=== PATIENT | male | born 1945 | race Caucasian/White ===

== ENCOUNTER 2024-01-10 10:20 | Inpatient (IN) | payer MEDICARE, MEDICAID ==
[~2024-01-10] VITALS: Ht 193 cm; Wt 65.8 kg
[2024-01-10] VITALS (19 sets, daily range): BP systolic 85–165; BP diastolic 54–137; PULSE 99–113; RESP 12–23; TEMP 36.16956–36.1956; O2SAT 95–100
[2024-01-10] MEDS: SODIUM CHLORIDE 0.9% 1,000 ML IV ONE ×2 (11:11→13:37)
[2024-01-10] MEDS: PIPERACILLIN/TAZO 3.375G/50ML 50 ML IV ONE (11:11)
[2024-01-10] MEDS: VANCOMYCIN 1G PREMIX 200 ML IV ONE (11:34)
[2024-01-10] MEDS: DILTIAZEM HCL 5MG/ML 5ML VIAL IV ONE (11:36)
[2024-01-10 11:42] LABS: HEMATOCRIT. 36.4 % (42.0-52.0); HEMOGLOBIN. 11.7 g/dL (14.0-18.0); INR 1.7; MEAN CORPUSCULAR HEMOGLOBIN 31.6 pg (28.0-32.0); MEAN CORPUSCULAR VOLUME 98.6 fL (80.0-94.0); MEAN PLATELET VOLUME 11.8 fl (7.4-10.4); PLATELET 356 x1000/uL (130-400); PROTHROMBIN TIME 18.6 sec (9.6-11.0); RED CELL DISTRIBUTION WIDTH 14.9 % (11.6-14.6); WHITE BLOOD COUNT 21.5 x1000/uL (4.5-11.0)
[2024-01-10 11:46] LABS: CHLORIDE 100 mEq/L (98-107); DIFFERENTIAL COMMENT 1; SODIUM 136 mEq/L (136-145)
[2024-01-10 11:47] LABS: CALCIUM 8.3 mg/dL (8.7-10.4); CARBON DIOXIDE 19 mEq/L (21-32)
[2024-01-10 11:52] LABS: GLUCOSE 143 mg/dL (70-105)
[2024-01-10 11:54] LABS: CREATINE KINASE 625 IU/L (46-171)
[2024-01-10 11:59] LABS: CREATININE 4.4 mg/dL (0.6-1.3); ETHANOL BLOOD < 10 mg/dL (<10)
[2024-01-10] MEDS: DILTIAZEM HCL 60MG TABLET PO ONE (12:00)
[2024-01-10 12:01] LABS: TROPONIN I HIGH SENSITIVITY 67 ng/L (3.0-53); UREA NITROGEN BLOOD 104 mg/dL (9-23)
[2024-01-10 12:42] LABS: PLATELET ESTIMATE NORMAL
[2024-01-10] MEDS: NOREPINEPHRINE 8MG/250ML PMX 250 ML IV ONE (13:30)
[2024-01-10 14:14] LABS: TROPONIN I HIGH SENSITIVITY 66 ng/L (3.0-53)
[2024-01-10] MEDS ORDERED: ACETAMINOPHEN 325MG TABLET PO PRN (15:30)
[2024-01-10] MEDS ORDERED: DOCUSATE SODIUM 100MG CAPSULE PO PRN (15:30)
[2024-01-10] MEDS ORDERED: ONDANSETRON HCL 4MG/2ML INJ IV PRN (15:30)
[2024-01-10] MEDS ORDERED: CLONIDINE 0.1MG TABLET PO PRN (15:30)
[2024-01-10 15:33] LABS: CLARITY URINE TURBID (CLEAR); COLOR URINE YELLOW (YELLOW); GLUCOSE URINE NEGATIVE (NEGATIVE); KETONES URINE NEGATIVE (NEGATIVE); LEUKOCYTE ESTERASE URINE 3+ (NEGATIVE); NITRITE URINE NEGATIVE (NEGATIVE); OCCULT BLOOD URINE 3+ (NEGATIVE); PROTEIN URINE 3+ (NEGATIVE); SPECIFIC GRAVITY URINE 1.015 (1.005-1.030); UROBILINOGEN URINE 0.2 E.U./dL (0.2-1.0)
[2024-01-10 15:46] LABS: *AMPHETAMINES SCREEN URINE NEGATIVE (NEGATIVE); *BARBITURATES SCREEN URINE NEGATIVE (NEGATIVE); *BENZODIAZEPINES SCREEN URINE NEGATIVE (NEGATIVE)
[2024-01-10 15:47] LABS: *COCAINE SCREEN URINE NEGATIVE (NEGATIVE); CANNABINOID URINE SCREEN NEGATIVE (NEGATIVE); ECSTASY MDMA SCREEN URINE NEGATIVE (NEGATIVE); METHADONE URINE SCREEN NEGATIVE (NEGATIVE); OPIATES URINE SCREEN NEGATIVE (NEGATIVE); PHENCYCLIDINE URINE SCREEN NEGATIVE (NEGATIVE)
[2024-01-10 16:07] LABS: BACTERIA URINE 4+; RBC URINE 25-50 /hpf (0-2); SQUAMOUS EPITHELIAL CELL URINE NONE SEEN /lpf (RARE/1+); WBC URINE TNTC /hpf (0-2); YEAST URINE NONE SEEN
[2024-01-10] MEDS ORDERED: DEXTROSE 50% WATER 50ML SYRINGE IV PRN (16:15)
[2024-01-10] MEDS: SODIUM CHLORIDE 0.9% 1,000 ML IV SCH (17:45)
[2024-01-10] MEDS: PANTOPRAZOLE SODIUM 40 MG/VIAL IV SCH (17:46)
[2024-01-10] MEDS: BLOOD SUGAR DIAGNOSTIC STRIP TEST SCH (17:58)
[2024-01-10] MEDS: INSULIN LISPRO 100 UNITS/ML SUBCUT SCH (18:20)
[2024-01-10 19:18] LABS: PHOSPHORUS 7.4 mg/dL (2.5-4.9)
[2024-01-10 19:19] LABS: TROPONIN I HIGH SENSITIVITY 56 ng/L (3.0-53)
[2024-01-10] MEDS: PIPERACILLIN/TAZO 3.375G/50ML 50 ML IV SCH (21:07)
[2024-01-10] MEDS: ENOXAPARIN 60MG/0.6ML SYR SUBCUT SCH (21:08)
[2024-01-11] VITALS (91 sets, daily range): BP systolic 72–126; BP diastolic 46–90; PULSE 95–144; RESP 11–28; TEMP 36.33624–37.16964; O2SAT 89–99
[2024-01-11 06:25] LABS: CREATINE KINASE 897 IU/L (46-171)
[2024-01-11 08:31] LABS: POTASSIUM 3.1 mEq/L (3.5-5.1)
[2024-01-11 08:32] LABS: CALCIUM 7.5 mg/dL (8.7-10.4)
[2024-01-11 08:37] LABS: CREATININE 3.4 mg/dL (0.6-1.3)
[2024-01-11] MEDS ORDERED: LIDOCAINE HCL 1% 10 MG/ML 10ML VIAL ONE (08:39)
[2024-01-11] MEDS ORDERED: ENOXAPARIN 30MG/0.3ML SYR SUBCUT SCH (09:00)
[2024-01-11 09:02] LABS: BASOPHILS % 0.3 % (0.0-2.0); EOSINOPHILS % 0.5 % (0.0-5.0); HEMATOCRIT. 36.7 % (42.0-52.0); HEMOGLOBIN. 11.8 g/dL (14.0-18.0); LYMPHOCYTES % 9.8 % (20.0-50.0); MEAN CORPUSCULAR HEMOGLOBIN 31.9 pg (28.0-32.0); MEAN CORPUSCULAR HGB CONC 32.2 g/dL (31.0-37.0); MEAN CORPUSCULAR VOLUME 99.2 fL (80.0-94.0); MEAN PLATELET VOLUME 11.2 fl (7.4-10.4); MONOCYTES % 5.3 % (2.0-8.0); NEUTROPHILS % 84.1 % (40.0-76.0); PLATELET 404 x1000/uL (130-400); RED CELL DISTRIBUTION WIDTH 15.2 % (11.6-14.6); WHITE BLOOD COUNT 21.9 x1000/uL (4.5-11.0)
[2024-01-11] MEDS ORDERED: DOCUSATE SODIUM 100MG CAPSULE PO SCH ×2 (09:45)
[2024-01-11] MEDS: DOCUSATE SODIUM 250MG CAPSULE PO SCH (10:41)
[2024-01-11] MEDS ORDERED: AMIODARONE HCL 150 MG in DEXT 5% WATER 97 ML IV NR (12:15)
[2024-01-11] MEDS: VANCOMYCIN 1.25GM PMX (XELLIA) 250 ML IV NR (12:50)
[2024-01-11] MEDS: INSULIN LISPRO 100 UNITS/ML SUBCUT SCH (12:50)
[2024-01-11] MEDS: AMIODARONE 150MG/100ML 100 ML IV NR (12:50)
[2024-01-11] MEDS: AMIODARONE HCL 900 MG in DEXT 5% WATER 482 ML IV PRN (13:02)
[2024-01-11] MEDS: PHENYLEPHRINE 50MG/250ML PMX 250 ML IV PRN (17:27)
[2024-01-11] MEDS: POTASSIUM CHLORIDE 20MEQ TABLET SR PO NR (17:28)
[2024-01-11 18:04] LABS: CREATININE URINE RANDOM 32.8 mg/dL
[2024-01-11] MEDS ORDERED: VANCOMYCIN 500MG PREMIX 100 ML IV SCH (23:30)
[2024-01-12] VITALS (82 sets, daily range): BP systolic 87–137; BP diastolic 39–98; PULSE 52–76; RESP 11–27; TEMP 36.3918–36.72516; O2SAT 86–100
[2024-01-12 06:02] LABS: CALCIUM 7.5 mg/dL (8.7-10.4); CARBON DIOXIDE 23 mEq/L (21-32); CHLORIDE 106 mEq/L (98-107); POTASSIUM 3.4 mEq/L (3.5-5.1); SODIUM 137 mEq/L (136-145)
[2024-01-12 06:07] LABS: CREATININE 2.6 mg/dL (0.6-1.3); GLUCOSE 114 mg/dL (70-105); UREA NITROGEN BLOOD 74 mg/dL (9-23)
[2024-01-12 06:10] LABS: PHOSPHORUS 3.9 mg/dL (2.5-4.9)
[2024-01-12 08:21] LABS: BASOPHILS % 0.5 % (0.0-2.0); EOSINOPHILS % 0.9 % (0.0-5.0); HEMATOCRIT. 34.3 % (42.0-52.0); HEMOGLOBIN. 11.2 g/dL (14.0-18.0); LYMPHOCYTES % 11.3 % (20.0-50.0); MEAN CORPUSCULAR HEMOGLOBIN 32.1 pg (28.0-32.0); MEAN CORPUSCULAR HGB CONC 32.8 g/dL (31.0-37.0); MEAN CORPUSCULAR VOLUME 97.9 fL (80.0-94.0); MONOCYTES % 4.9 % (2.0-8.0); NEUTROPHILS % 82.4 % (40.0-76.0); PLATELET 410 x1000/uL (130-400); RED CELL DISTRIBUTION WIDTH 15.1 % (11.6-14.6); WHITE BLOOD COUNT 18.6 x1000/uL (4.5-11.0)
[2024-01-12] MEDS: POTASSIUM CHLORIDE 20MEQ TABLET SR PO NR (09:38)
[2024-01-12] MEDS: POTASSIUM CHLORIDE 20MEQ/PACKET PO NR (09:45)
[2024-01-12] MEDS: VANCOMYCIN 1.25GM PMX (XELLIA) 250 ML IV NR (12:55)
[2024-01-12] MEDS: POTASSIUM CHLORIDE 20MEQ/PACKET PO SCH (15:22)
[2024-01-12] MEDS: PIPERACILLIN/TAZO 3.375G/50ML 50 ML IV SCH (15:22)
[2024-01-12] MEDS: MIDODRINE HCL 5MG TABLET PO SCH (17:02)
[2024-01-13] VITALS (8 sets, daily range): BP systolic 107–133; BP diastolic 62–83; PULSE 57–73; RESP 16–22; TEMP 36.3918–36.83628; O2SAT 93–99
[2024-01-13 06:44] LABS: CALCIUM 7.8 mg/dL (8.7-10.4); CARBON DIOXIDE 23 mEq/L (21-32); CHLORIDE 109 mEq/L (98-107); POTASSIUM 3.7 mEq/L (3.5-5.1); SODIUM 141 mEq/L (136-145)
[2024-01-13 06:49] LABS: GLUCOSE 90 mg/dL (70-105)
[2024-01-13 06:50] LABS: CREATININE 1.7 mg/dL (0.6-1.3); UREA NITROGEN BLOOD 42 mg/dL (9-23)
[2024-01-13 06:52] LABS: PHOSPHORUS 2.7 mg/dL (2.5-4.9)
[2024-01-13 07:13] LABS: BASOPHILS % 0.5 % (0.0-2.0); DIFFERENTIAL COMMENT 0; EOSINOPHILS % 1.2 % (0.0-5.0); HEMATOCRIT. 36.5 % (42.0-52.0); HEMOGLOBIN. 11.6 g/dL (14.0-18.0); LYMPHOCYTES % 19.1 % (20.0-50.0); MEAN CORPUSCULAR VOLUME 100.1 fL (80.0-94.0); MEAN PLATELET VOLUME 10.4 fl (7.4-10.4); MONOCYTES % 5.4 % (2.0-8.0); NEUTROPHILS % 73.8 % (40.0-76.0); PLATELET 302 x1000/uL (130-400); RED BLOOD CELL COUNT 3.64 mill/uL (4.7-6.1); RED CELL DISTRIBUTION WIDTH 15.1 % (11.6-14.6); WHITE BLOOD COUNT 10.6 x1000/uL (4.5-11.0)
[2024-01-13] MEDS: IPRATROPIUM/ALBUTEROL 0.5-3(2.5)MG/3ML NEB HHN SCH (07:50)
[2024-01-13] MEDS: VANCOMYCIN 1.25GM PMX (XELLIA) 250 ML IV SCH (12:31)
[2024-01-13] MEDS: MEROPENEM 1G/100ML 100 ML IV SCH (21:07)
[2024-01-14] VITALS: BP 104/65; PULSE 61; RESP 16; TEMP 36.3918; O2SAT 97
[2024-01-14 04:00] VITALS: BP 138/59; PULSE 55; RESP 16; O2SAT 94
[2024-01-14 08:00] VITALS: BP 146/66; PULSE 59; RESP 16; TEMP 36.9474; O2SAT 96
[2024-01-14] MEDS: FAMOTIDINE 20MG/2ML VIAL IV SCH (08:54)
[2024-01-14 11:01] LABS: HEMATOCRIT 32.6 % (42.0-52.0); HEMOGLOBIN 10.6 g/dL (14.0-18.0); MEAN CORPUSCULAR HGB CONC 32.5 g/dL (31.0-37.0); MEAN CORPUSCULAR VOLUME 98.6 fL (80.0-94.0); PLATELET 357 x1000/uL (130-400); RED CELL DISTRIBUTION WIDTH 14.8 % (11.6-14.6); WHITE BLOOD COUNT 11.3 x1000/uL (4.5-11.0)
[2024-01-14 11:06] LABS: CHLORIDE 108 mEq/L (98-107); POTASSIUM 3.4 mEq/L (3.5-5.1); SODIUM 142 mEq/L (136-145)
[2024-01-14 11:07] LABS: CALCIUM 7.6 mg/dL (8.7-10.4); CARBON DIOXIDE 30 mEq/L (21-32)
[2024-01-14 11:12] LABS: GLUCOSE 130 mg/dL (70-105); UREA NITROGEN BLOOD 23 mg/dL (9-23)
[2024-01-14 12:00] VITALS: BP 136/96; PULSE 70; RESP 19; TEMP 36.55848; O2SAT 94
[2024-01-14] MEDS ORDERED: DOCU-138 MT (12:58)
[2024-01-14 16:00] VITALS: BP 111/71; PULSE 62; RESP 20; TEMP 36.6696; TEMP 36.66960; O2SAT 95
[2024-01-14] MEDS: MEROPENEM 1G/100ML 100 ML IV SCH (17:03)
[2024-01-14] MEDS: POTASSIUM CHLORIDE 20MEQ TABLET SR PO NR (17:03)
[2024-01-14 17:48] VITALS: BP 111/71; PULSE 62; TEMP 98; O2SAT 95
== END 2024-01-14 19:00 | disposition home health service (06) | DRG 698 ==
LOC: ER 10:20 → EDBEDREQTM 12:53 → EDBEDREQ 12:53 → CVICU 13:20 → EDBEDREQ 13:21 → EDBEDREQSVC 13:21 → EDBEDREQTM 13:21 → 3WST 01-12 23:53
PROVIDERS: ADMIT Hospitalist; ATTEND Hospitalist
PROC: 02HV33Z Insertion of Infusion Device into Superior Vena Cava, Percutaneous Approach (ICD-10-PCS; principal; 2024-01-11)
DX: T83.518A Infection and inflammatory reaction due to other urinary catheter, initial encounter (principal); A41.89 Other specified sepsis; G93.41 Metabolic encephalopathy; I21.A1 Myocardial infarction type 2; R65.21 Severe sepsis with septic shock; N17.0 Acute kidney failure with tubular necrosis; D68.9 Coagulation defect, unspecified; M62.82 Rhabdomyolysis; E87.20 Acidosis, unspecified; Z16.12 Extended spectrum beta lactamase (ESBL) resistance; N39.0 Urinary tract infection, site not specified; E87.6 Hypokalemia; E83.41 Hypermagnesemia; E83.39 Other disorders of phosphorus metabolism; J44.9 Chronic obstructive pulmonary disease, unspecified; I48.0 Paroxysmal atrial fibrillation; K59.00 Constipation, unspecified; E78.00 Pure hypercholesterolemia, unspecified; R73.9 Hyperglycemia, unspecified; N18.1 Chronic kidney disease, stage 1; I12.9 Hypertensive chronic kidney disease with stage 1 through stage 4 chronic kidney disease, or unspecified chronic kidney disease; B96.89 Other specified bacterial agents as the cause of diseases classified elsewhere; Z96.642 Presence of left artificial hip joint; Y84.6 Urinary catheterization as the cause of abnormal reaction of the patient, or of later complication, without mention of misadventure at the time of the procedure; Z87.891 Personal history of nicotine dependence; Y92.89 Other specified places as the place of occurrence of the external cause
CPT/HCPCS: 36415; 36573; 71045; 74018; 76770; 80048; 80202; 80305; 80320; 81003; 82040; 82550; 82570; 82962; 83036; 83605; 83735; 83880; 84100; 84145; 84156; 84484; 85025; 85027; 85379; 86850; 86900; 87077; 87186; 93005; 93970; 94640; 97162; 97166; 97530; 99285; C1725; J0282; J1650; J1815; J2185; J2470; J2543; J3370; J3490; J7030; J7060; G0480